=== PATIENT | female | born 2005 | race Two or more races ===

== ENCOUNTER 2023-03-03 15:08 | Emergency (ER) | payer OTHER ==
[~2023-03-03] VITALS: Ht 157.5 cm; Wt 48.1 kg
[2023-03-03] MEDS ORDERED: PRENATAL + DHA1 EAC1 (15:23)
[2023-03-03 19:27] LABS: HEMATOCRIT 32.9 % (36.0-45.00); HEMOGLOBIN 10.5 g/dL (12.0-15.00); MEAN CELL VOLUME 75.1 fL (80.00-100.00); PLATELET COUNT 264 K/uL (150-450); RED BLOOD COUNT 4.39 M/uL (4.00-6.00); RED CELL DISTRIBUTION WIDTH 18.6 % (11.5-14.5)
== END 2023-03-03 21:56 | disposition home or self-care (01) ==
LOC: ER 15:08 → EMR PED 15:17 → ER 15:17
PROVIDERS: General Practice
DX: O99.511 Diseases of the respiratory system complicating pregnancy, first trimester (principal); J06.9 Acute upper respiratory infection, unspecified; Z3A.12 12 weeks gestation of pregnancy; Z20.822 Contact with and (suspected) exposure to COVID-19; Z88.6 Allergy status to analgesic agent

== ENCOUNTER 2023-08-31 15:40 | Outpatient (CLI) | payer OTHER ==
[~2023-08-31 15:40] MED LIST: PRENATAL + DHA1 EAC1
== END 2023-08-31 15:42 | disposition home or self-care (01) ==
LOC: PRENATAL 15:40
PROVIDERS: ATTEND Obstetrics & Gynecology Maternal & Fetal Medicine
DX: O26.849 Uterine size-date discrepancy, unspecified trimester (principal); O36.8199 Decreased fetal movements, unspecified trimester, other fetus; Z3A.36 36 weeks gestation of pregnancy